=== PATIENT | female | born 1985 | race Caucasian/White ===

== ENCOUNTER 2019-04-20 08:33 | Inpatient (IN) | payer BC ==
[~2019-04-20] VITALS: Ht 154.9 cm; Wt 94.6 kg
[2019-04-20] MEDS ORDERED: OXYTOCIN 30U/ 0.9% NaCL 500ML 500 ML IV ONE (20:57)
[2019-04-20] MEDS ORDERED: CALCIUM CARBONATE 500 MG TAB.CHEW PO PRN (21:00)
[2019-04-20] MEDS ORDERED: TERBUTALINE 1 MG/ML, 1ML SQ PRN (21:00)
[2019-04-20] MEDS ORDERED: MISOPROSTOL 25 MCG TABLET VG PRN (21:00)
[2019-04-20] MEDS ORDERED: FENTANYL PF 100 MCG/2ML IVPush PRN (21:00)
[2019-04-20] MEDS ORDERED: ONDANSETRON 2MG/ML, 2ML IVPush PRN (21:00)
[2019-04-20] MEDS ORDERED: SODIUM CHLORIDE FLUSH 10ML SYR IVF PRN (21:00)
[2019-04-20] MEDS ORDERED: ALUMINUM/MAG/SIMETHICONE 30 ML UDC PO PRN (21:00)
[2019-04-20] MEDS ORDERED: TERBUTALINE 1 MG/ML, 1ML IVPush PRN (21:00)
[2019-04-20] MEDS ORDERED: FENTANYL PF 100 MCG/2ML IV PRN (21:00)
[2019-04-20] MEDS ORDERED: OXYTOCIN 30U/ 0.9% NaCL 500ML 500 ML ONE (21:02)
[2019-04-20] MEDS ORDERED: NEWBORN KIT ONE (21:02)
[2019-04-20] MEDS ORDERED: LIDOCAINE 1%, 20ML ONE (21:02)
[2019-04-20] MEDS ORDERED: MISOPROSTOL 200 MCG TABLET ONE (21:02)
[2019-04-20 21:18] LABS: BASOPHILS # (AUTO) 0.15 x10^3/uL (0-0.1); BASOPHILS % (AUTO) 1 % (0-1); EOSINOPHILS % (AUTO) 1 % (1-7); LYMPHOCYTES % (AUTO) 25 % (22-44); MD NO; MEAN CORPUSCULAR HEMOGLOBIN 31.6 pg (27.0-34.8); MEAN CORPUSCULAR HGB CONC 33.4 g/dL (32.4-35.8); MEAN CORPUSCULAR VOLUME 94.7 fL (80-100); MEAN PLATELET VOLUME 7.4 fL (7.4-10.4); MONOCYTES # (AUTO) 0.61 x10^3/uL (0.2-0.8); MONOCYTES % (AUTO) 6 % (2-9); NEUTROPHILS # (AUTO) 7.45 x10^3/uL (1.8-6.8); NEUTROPHILS % (AUTO) 67 % (42-75); PLATELET COUNT 391 x10^3/uL (130-400); RED BLOOD COUNT 3.87 x10^6/uL (3.82-5.3); RED CELL DISTRIBUTION WIDTH 12.5 % (9.6-15.2)
[2019-04-20] MEDS ORDERED: MISOPROSTOL 25 MCG TABLET ONE (21:21)
[2019-04-20] MEDS: LACTATED RINGERS 1,000 ML IV SCH (21:29)
[2019-04-21] MEDS ORDERED: MISOPROSTOL 25 MCG TABLET ONE (01:07)
[2019-04-21] MEDS ORDERED: OXYTOCIN 30U/ 0.9% NaCL 500ML 500 ML IV PRN (09:16)
[2019-04-21] MEDS: D5%-LACTATED RINGERS 1,000 ML IV SCH ×3 (12:57→21:27)
[2019-04-21] MEDS ORDERED: FENTANYL/BUPIV./NS/PF 250 ML EPIDCONT SCH ×2 (13:00→16:14)
[2019-04-21] MEDS ORDERED: LACTATED RINGERS 1,000 ML IVBOLUS PRN ×2 (13:00→17:00)
[2019-04-21] MEDS ORDERED: FENTANYL PF 500 MCG, BUPIVACAINE/PF 0.5%, 30ML 62.5 ML in SODIUM CHLORIDE 0.9% 177.5 ML EPIDCONT SCH (13:30)
[2019-04-21] MEDS ORDERED: BUPIVACAINE 0.25% ONE (13:51)
[2019-04-21] MEDS: LACTATED RINGERS 1,000 ML IV SCH ×2 (14:14→20:57)
[2019-04-21] MEDS ORDERED: EPHEDRINE 50 MG/ML, 1ML IVPush PRN (16:30)
[2019-04-21] MEDS ORDERED: LACTATED RINGERS 1,000 ML IV SCH (17:00)
[2019-04-21] MEDS ORDERED: ACETAMINOPHEN 500 MG TABLET ONE (20:27)
[2019-04-21] MEDS ORDERED: ACETAMINOPHEN 500 MG TABLET PO ONE (20:30)
[2019-04-21] MEDS ORDERED: SODIUM CITRATE/CITRIC ACID 30 ML UDC ONE (22:54)
[2019-04-21] MEDS ORDERED: METOCLOPRAMIDE 5 MG/ML, 2ML ONE (22:54)
[2019-04-22] MEDS ORDERED: ACETAMINOPHEN 500 MG TABLET ONE (03:19)
[2019-04-22] MEDS: AMPICILLIN 2 GM in SODIUM CHLORIDE 0.9% 100 ML IV SCH ×3 (03:27→12:28)
[2019-04-22] MEDS ORDERED: ACETAMINOPHEN 500 MG TABLET PO ONE (03:30)
[2019-04-22] MEDS ORDERED: GENTAMICIN PER PHARMACY MC PRN (04:00)
[2019-04-22] MEDS ORDERED: PHARMACOKINETIC CONSULTATION MC ONE (04:00)
[2019-04-22] MEDS ORDERED: PHARMACOKINETIC MONITORING MC PRN (04:00)
[2019-04-22] MEDS: SODIUM CHLORIDE 0.9% IV SCH (04:05)
[2019-04-22] MEDS: GENTAMICIN IV SCH (04:05)
[2019-04-22 04:49] LABS: CREATININE 0.78 mg/dL (0.55-1.02)
[2019-04-22 05:25] LABS: MEAN CORPUSCULAR HEMOGLOBIN 31.8 pg (27.0-34.8); MEAN CORPUSCULAR HGB CONC 33.9 g/dL (32.4-35.8); MEAN CORPUSCULAR VOLUME 93.7 fL (80-100); MEAN PLATELET VOLUME 8.1 fL (7.4-10.4); PLATELET COUNT 361 x10^3/uL (130-400); RED BLOOD COUNT 3.96 x10^6/uL (3.82-5.3); RED CELL DISTRIBUTION WIDTH 12.4 % (9.6-15.2)
[2019-04-22 05:49] LABS: BASOPHILS # (AUTO) 0.01 x10^3/uL (0-0.1); BASOPHILS % (AUTO) 0 % (0-1); EOSINOPHILS # (AUTO) 0.01 x10^3/uL (0-0.4); EOSINOPHILS % (AUTO) 0 % (1-7); LYMPHOCYTES # (AUTO) 1.33 x10^3/uL (1-3.4); LYMPHOCYTES % (AUTO) 5 % (22-44); MD SCAN; MONOCYTES % (AUTO) 6 % (2-9); NEUTROPHILS # (AUTO) 24.02 x10^3/uL (1.8-6.8); NEUTROPHILS % (AUTO) 89 % (42-75)
[2019-04-22] MEDS ORDERED: AZITHROMYCIN 500 MG in SODIUM CHLORIDE 0.9% 250 ML IV ONE (07:00)
[2019-04-22] MEDS ORDERED: SODIUM CITRATE/CITRIC ACID 30 ML UDC PO ONE (07:00)
[2019-04-22] MEDS ORDERED: CALCIUM CARBONATE 500 MG TAB.CHEW PO PRN (07:00)
[2019-04-22] MEDS ORDERED: CLINDAMYCIN PMX 900MG/50ML 50 ML IVPB ONE (07:00)
[2019-04-22] MEDS ORDERED: CEFAZOLIN PMX 1GM/50ML 50 ML IVPB ONE (07:00)
[2019-04-22] MEDS ORDERED: METOCLOPRAMIDE 5 MG/ML, 2ML IV ONE (07:00)
[2019-04-22] MEDS ORDERED: OXYTOCIN 10 UNITS/ML, 1ML ONE (07:13)
[2019-04-22] MEDS ORDERED: ONDANSETRON 2MG/ML, 2ML ONE (07:13)
[2019-04-22] MEDS ORDERED: CEFAZOLIN 1,000 MG ONE (07:13)
[2019-04-22] MEDS ORDERED: KETOROLAC 30 MG/1 ML ONE (07:13)
[2019-04-22] MEDS ORDERED: DEXAMETHASONE 4 MG/ML, 1ML ONE (07:13)
[2019-04-22] MEDS ORDERED: PHENYLEPHRINE 10 MG/ML ONE (07:13)
[2019-04-22] MEDS ORDERED: EPHEDRINE 50 MG/ML, 1ML ONE (07:13)
[2019-04-22] MEDS ORDERED: FENTANYL PF 100 MCG/2ML ONE ×2 (07:14→07:25)
[2019-04-22] MEDS: LACTATED RINGERS 1,000 ML IV SCH ×5 (07:19→18:42)
[2019-04-22] MEDS ORDERED: MEPERIDINE/PF 25MG/0.5ML IVPush PRN (07:30)
[2019-04-22] MEDS ORDERED: LABETALOL 5MG/ML, 20ML IV PRN (07:30)
[2019-04-22] MEDS ORDERED: HYDROcodone/APAP 7.5-325MG/15ML UDC PO PRN (07:30)
[2019-04-22] MEDS ORDERED: ONDANSETRON 2MG/ML, 2ML IVPush PRN (07:30)
[2019-04-22] MEDS ORDERED: METOPROLOL 1 MG/ML, 5ML IV PRN (07:30)
[2019-04-22] MEDS ORDERED: hydrALAzine 20 MG/ML, 1ML IV PRN (07:30)
[2019-04-22] MEDS ORDERED: HYDROmorphone 2 MG/ML, 1ML IVPush PRN (07:30)
[2019-04-22] MEDS ORDERED: ALBUTEROL SULFATE 2.5 MG/3 ML NPPB PRN (07:30)
[2019-04-22] MEDS ORDERED: OXYcodone 5 MG/5 ML ORAL.SOL UDC PO PRN (07:30)
[2019-04-22] MEDS ORDERED: PROMETHAZINE 25 MG/ML, 1ML IV PRN (07:30)
[2019-04-22] MEDS ORDERED: FENTANYL PF 100 MCG/2ML IV PRN (07:30)
[2019-04-22] MEDS ORDERED: EPHEDRINE 50 MG/ML, 1ML IVPush PRN (07:30)
[2019-04-22] MEDS ORDERED: MIDAZOLAM 1 MG/ML, 2ML IV PRN (07:30)
[2019-04-22] MEDS ORDERED: morphine SULFATE/PF 0.5 MG/ML, 10ML ONE (08:16)
[2019-04-22] MEDS ORDERED: ONDANSETRON 2MG/ML, 2ML IV PRN (09:00)
[2019-04-22] MEDS ORDERED: CLINDAMYCIN PMX 900MG/50ML 50 ML IV ONE (09:00)
[2019-04-22] MEDS: PRENATAL VIT/IRON/FA 1 EACH TABLET PO SCH (09:00)
[2019-04-22] MEDS ORDERED: IBUPROFEN 600 MG TABLET PO PRN (09:00)
[2019-04-22] MEDS ORDERED: ACETAMINOPHEN 325 MG TABLET PO PRN (09:00)
[2019-04-22] MEDS ORDERED: OXYcodone IR 5MG TABLET PO PRN ×2 (09:00)
[2019-04-22] MEDS ORDERED: MISOPROSTOL 200 MCG TABLET PR PRN (09:00)
[2019-04-22] MEDS ORDERED: CLINDAMYCIN PMX 900MG/50ML 50 ML ONE (09:22)
[2019-04-22] MEDS ORDERED: OXYTOCIN 30U/ 0.9% NaCL 500ML 500 ML ONE (10:02)
[2019-04-22] MEDS: OXYTOCIN 30U/ 0.9% NaCL 500ML 500 ML IV SCH ×2 (10:04→18:42)
[2019-04-22 11:05] VITALS: BP 135/70
[2019-04-22] MEDS ORDERED: LIDOCAINE/PF 1.5% EPI 1:200K, 10 ML ONE (13:55)
[2019-04-22] MEDS: KETOROLAC 30 MG/1 ML IV SCH ×2 (14:37→21:16)
[2019-04-22 16:00] VITALS: BP 92/52
[2019-04-22 16:50] VITALS: BP 105/64
[2019-04-22 19:39] VITALS: BP 109/73
[2019-04-23 00:15] VITALS: BP 104/67
[2019-04-23] MEDS: LACTATED RINGERS 1,000 ML IV SCH ×5 (00:42→16:42)
[2019-04-23] MEDS: KETOROLAC 30 MG/1 ML IV SCH ×4 (03:03→22:05)
[2019-04-23 04:00] VITALS: BP 119/71
[2019-04-23] MEDS: GENTAMICIN IV SCH (04:35)
[2019-04-23] MEDS: SODIUM CHLORIDE 0.9% IV SCH (04:35)
[2019-04-23] MEDS: OXYTOCIN 30U/ 0.9% NaCL 500ML 500 ML IV SCH ×2 (04:45→14:42)
[2019-04-23 08:00] VITALS: BP 110/72
[2019-04-23] MEDS: PRENATAL VIT/IRON/FA 1 EACH TABLET PO SCH (09:30)
[2019-04-23] MEDS: DOCUSATE 100 MG CAPSULE PO PRN ×2 (09:30→22:05)
[2019-04-23] MEDS: SIMETHICONE 80 MG CHEW TAB PO PRN ×2 (09:34→22:05)
[2019-04-23 12:00] VITALS: BP 123/78
[2019-04-23 12:01] LABS: MEAN CORPUSCULAR HEMOGLOBIN 31.9 pg (27.0-34.8); MEAN CORPUSCULAR HGB CONC 33.7 g/dL (32.4-35.8); MEAN CORPUSCULAR VOLUME 94.5 fL (80-100); MEAN PLATELET VOLUME 7.2 fL (7.4-10.4); PLATELET COUNT 330 x10^3/uL (130-400); RED BLOOD COUNT 2.94 x10^6/uL (3.82-5.3); RED CELL DISTRIBUTION WIDTH 12.8 % (9.6-15.2)
[2019-04-23 12:35] LABS: MD YES
[2019-04-23 12:39] LABS: BAND#(MANUAL) 1.35 x10^3/uL; BANDS%(MANUAL) 7 % (0-7); LYMPH#(MANUAL) 2.51 x10^3/uL (1-3.4); LYMPHS% (MANUAL) 13 % (22-44); MONOS#(MANUAL) 0.39 x10^3/uL (0.3-2.7); MONOS% (MANUAL) 2 % (2-9); SEG#(MANUAL) 15.05 x10^3/uL (1.8-6.8); SEGS% (MANUAL) 78 % (42-75)
[2019-04-23 12:40] LABS: <PLATELET ESTIMATE> ADEQUATE; <PLT MORPHOLOGY> NORMAL PLT MORPH; <RBC MORPHOLOGY> NORMAL
[2019-04-23 16:00] VITALS: BP 118/75
[2019-04-23 19:40] VITALS: BP 129/80
[2019-04-24] MEDS: OXYTOCIN 30U/ 0.9% NaCL 500ML 500 ML IV SCH (00:42)
[2019-04-24] MEDS: LACTATED RINGERS 1,000 ML IV SCH ×2 (00:42)
[2019-04-24] MEDS: KETOROLAC 30 MG/1 ML IV SCH ×2 (04:14→11:39)
[2019-04-24 08:00] VITALS: BP 120/76
[2019-04-24] MEDS: PRENATAL VIT/IRON/FA 1 EACH TABLET PO SCH (09:00)
[2019-04-24] MEDS: SIMETHICONE 80 MG CHEW TAB PO PRN (09:00)
[2019-04-24] MEDS: DOCUSATE 100 MG CAPSULE PO PRN (09:00)
[2019-04-24] MEDS ORDERED: KETOROLAC 30 MG/1 ML ONE (11:38)
[2019-04-24] MEDS ORDERED: IBUP-1222 PO (13:11)
[2019-04-24] MEDS ORDERED: OXYC5TAB3 PO (13:14)
== END 2019-04-24 14:20 | disposition home or self-care (01) | DRG 787 ==
LOC: LDIP 20:53 → 2NW 04-22 10:43
PROVIDERS: ADMIT Obstetrics & Gynecology; ATTEND Obstetrics & Gynecology
PROC: 10D00Z1 Extraction of Products of Conception, Low, Open Approach (ICD-10-PCS; principal; 2019-04-22)
DX: O32.4XX0 Maternal care for high head at term, not applicable or unspecified (principal); O41.03X0 Oligohydramnios, third trimester, not applicable or unspecified; O75.2 Pyrexia during labor, not elsewhere classified; O62.1 Secondary uterine inertia; Z37.0 Single live birth; Z3A.39 39 weeks gestation of pregnancy
CPT/HCPCS: 36415; 87806; J7121; S0020; 80170; 82565; 85025; 86592; 86850; 86900; G0378; J0290; J0456; J0690; J1100; J1885; J2274; J2405; J3010; J3490; G0475; J1580; J2370; J2590; J2765; J7050; J7120